=== PATIENT | male | born 1965 | race Two or more races ===

== ENCOUNTER 2017-05-02 16:44 | Emergency (ER) | payer OTHER ==
[~2017-05-02] VITALS: Ht 172.7 cm; Wt 70.3 kg
[2017-05-02] MEDS ORDERED: LEVE1000 PO (16:59)
[2017-05-02] MEDS ORDERED: LEVETIRACETAM IV 500 MG in IV DEXTROSE 5% 100 ML IV ONE (17:00)
--- NOTE | 2017-05-02 17:00 | NUR ---
PATIENT WAS SEEN BY FOR POSSIBLE SIEZURE. PATIENTS RIGHT LIP AREA IS SLIGHLT SWOLLEN. IV PLACED. ON CONTINUOUS MONTIROING. PATIENT IS AWAKE, ALERT, ORIENTED X4.
[2017-05-02] MEDS ORDERED: LEVETIRACETAM 500 MG/5 ML VIAL IV ONE (17:12)
[2017-05-02 17:14] LABS: BASOPHILS % (AUTO) 0.7 % (0.0-2.0); EOSINOPHILS # (AUTO) 0.1 K/uL (0.0-0.7); EOSINOPHILS % (AUTO) 2.4 % (0.0-7.0); HEMATOCRIT 44.3 % (40-50); HEMOGLOBIN 14.6 G/DL (14.0-18.0); LYMPHOCYTES # (AUTO) 2.2 K/UL (0.8-4.8); LYMPHOCYTES % (AUTO) 44.9 % (20.5-51.5); MEAN CORPUSCULAR HEMOGLOBIN 29.8 UUG (27.0-31.0); MEAN CORPUSCULAR HGB CONC 33 g/dL (32.0-37.0); MEAN CORPUSCULAR VOLUME 90.4 FL (82.0-92.0); MONOCYTES # (AUTO) 0.3 K/UL (0.1-1.30); MONOCYTES % (AUTO) 5.9 % (0.0-11.0); NEUTROPHILS # (AUTO) 2.4 K/UL (1.8-8.9); NEUTROPHILS % (AUTO) 46.1 % (38.5-71.5); PLATELET COUNT (AUTO) 205 K/UL (150-450)
[2017-05-02 17:21] LABS: CARBON DIOXIDE 26 mmol/L (21-32); CHLORIDE 101 mmol/L (98-107); CREATININE 1.2 mg/dL (0.6-1.3); GLUCOSE 127 mg/dL (74-106); POTASSIUM 3.8 mmol/L (3.5-5.1); UREA NITROGEN, BLOOD 19 mg/dL (7-18)
[2017-05-02 17:27] LABS: ALANINE AMINOTRANSFERASE 36 U/L (16-63); ALKALINE PHOSPHATASE 122 U/L (50-136); ASPARTATE AMINOTRANSFERASE 32 U/L (15-37); BILIRUBIN,DIRECT 0.1 mg/dL (0.0-0.2); BILIRUBIN,TOTAL 0.3 mg/dL (0.2-1.0); TOTAL PROTEIN, SERUM 7.7 g/dL (6.4-8.2)
[2017-05-02 17:29] LABS: ETHANOL < 3 MG/DL (0-0)
--- NOTE | 2017-05-02 18:43 | NUR ---
PATIENT IS AWAKE AND ALERT WITH NO NEW COMPLAINTS. FAMILY AT BEDSIDE.
--- NOTE | 2017-05-02 18:55 | NUR ---
IV DC'D, CATHETER TIP INTQACT, PRESSURE APPLIED, DRESSIG APPLIED. DC, RX AND FOLLOW UP INSTRUCTIONS GIVEN AND EXPLAINED TO PATIENT WHO STATES HE UNDERSTANDS ALL INSTRUCTIONS. FAMILY STATES THEY UNDERSTAND TOO.
== END 2017-05-02 18:57 | disposition home or self-care (01) ==
LOC: ER 16:57
DX: G40.909 Epilepsy, unspecified, not intractable, without status epilepticus (principal)
CPT/HCPCS: 36415; 70450; 72125; 80048; 80076; 84484; 85025; 85730; 93005; 96365; 96366; 96375; 99285; A4663; G0480; J1953; J7060; 70030-TC

== ENCOUNTER 2020-03-03 11:17 | Emergency (ER) | payer SELFPAY ==
[~2020-03-03] VITALS: Ht 170.2 cm; Wt 77.1 kg
[~2020-03-03 11:17] MED LIST: LEVE1000 PO
--- NOTE | 2020-03-03 11:18 | NUR ---
Patient BIB [id number] via [employer]. c/o s/p unwitnessed seizure while patient was at work at [employer]. Patient Awake, A&O x4. Speech is clear and able to make needs known / follow simple commands. Breathing even and unlabored. no cough or SOB noted. denies any / GI distress. Safety precautions implemented. bed low. s/r up x2. padded siderails applied. frequent visual checks done
--- NOTE | 2020-03-03 11:20 | NUR ---
Dr. Del Castillo at bedside for MSE
[2020-03-03] MEDS ORDERED: levETIRAcetam 250 MG TABLET PO ONE (11:30)
[2020-03-03] MEDS ORDERED: levETIRAcetam 250 MG TABLET ONE (11:36)
--- NOTE | 2020-03-03 13:02 | NUR ---
Patients outside of ED to take patient home.
--- NOTE | 2020-03-03 13:02 | NUR ---
IV removed. Catheter intact and site benign. Pressure and 4x4 gauze applied to site. No bleeding noted. Patient discharged to home in stable condition. Written and verbal after care instructions given. Patient verbalizes understanding of instructions. Stressed follow up or return to ER for worsening s/s. patient ambulating with steady gait. NAD noted
[2020-03-03 13:06] VITALS: BP 105/73
== END 2020-03-03 13:02 | disposition home or self-care (01) ==
LOC: ER 11:17
DX: G40.909 Epilepsy, unspecified, not intractable, without status epilepticus (principal); Z79.899 Other long term (current) drug therapy
CPT/HCPCS: 36415; A4663

== ENCOUNTER 2020-08-03 10:07 | Emergency (ER) | payer OTHER ==
[~2020-08-03] VITALS: Ht 165.1 cm; Wt 56.7 kg
--- NOTE | 2020-08-03 10:10 | NUR ---
Pt NADINE ROUSSEAU, reports pt was at work, had approx 1 minute Sz., field IV 20g left FA. Pt A&Ox2.5, oriented to President, but not year. Pt takes Kepra, took it today. Pt denies CP, SOB, dizziness, n/v, pain, no other complaints, no distress noted.
[2020-08-03] MEDS ORDERED: LORAZEPAM 2 MG/1 ML VIAL IV ONE (10:15)
--- NOTE | 2020-08-03 10:15 | NUR ---
Bed rails padded for sz precautions, HOB elevated.
[2020-08-03] MEDS ORDERED: LORAZEPAM 2 MG/1 ML VIAL ONE (10:22)
[2020-08-03 10:37] LABS: BASOPHILS % (AUTO) 0.6 % (0.0-2.0); EOSINOPHILS % (AUTO) 1.5 % (0.0-7.0); HEMATOCRIT 42.1 % (36.7-47.1); HEMOGLOBIN 14.2 g/dL (12.5-16.3); LYMPHOCYTES # (AUTO) 0.9 K/uL (20.0-40.0); LYMPHOCYTES % (AUTO) 33.7 % (20.5-51.5); MEAN CORPUSCULAR HEMOGLOBIN 31.5 uug (23.8-33.4); MEAN CORPUSCULAR HGB CONC 34 g/dL (32.5-36.3); MEAN CORPUSCULAR VOLUME 93.3 fL (73.0-96.2); MONOCYTES # (AUTO) 0.2 K/uL (2.0-10.0); MONOCYTES % (AUTO) 6.3 % (0.0-11.0); NEUTROPHILS # (AUTO) 1.6 K/uL (1.8-8.9); NEUTROPHILS % (AUTO) 57.9 % (38.5-71.5); PLATELET COUNT (AUTO) 208 K/uL (152-348); RED BLOOD CELL COUNT(AUTO) 4.51 MIL/uL (4.06-5.63); WHITE BLOOD COUNT (AUTO) 2.8 K/uL (3.6-10.2)
[2020-08-03 10:46] LABS: CREATININE 0.8 mg/dL (0.6-1.3); POTASSIUM 4.2 mmol/L (3.5-5.1)
--- NOTE | 2020-08-03 12:09 | NUR ---
IV removed. Catheter intact and site benign. Pressure and 4x4 gauze applied to site. No bleeding noted.
--- NOTE | 2020-08-03 12:09 | NUR ---
Patient discharged to home in stable condition. Written and verbal after care instructions given. Patient verbalizes understanding of instructions. Stressed follow up or return to ER for worsening s/s. Pt is awake,alert and oriented x 4 and ambulatory with steady gait. Pt stated he will take the bus home.
== END 2020-08-03 12:12 | disposition home or self-care (01) ==
LOC: ER 10:07
DX: G40.909 Epilepsy, unspecified, not intractable, without status epilepticus (principal); Z79.899 Other long term (current) drug therapy
CPT/HCPCS: 36415; 80048; 85025; 96374; 99284; J2060; A4663